=== PATIENT | male | born 1945 | race Caucasian/White ===

== ENCOUNTER 2022-11-15 07:29 | Day surgery (SDC) | payer MEDICARE ==
[~2022-11-15] VITALS: Ht 170.2 cm; Wt 108.9 kg
[~2022-11-15 07:29] MED LIST: ASPIRIN LOW81 M1 PO; ATORVASTATIN CA80 MG PO; CLOPIDOGREL75 MG PO; D3-5050000 UNIT PO; EZETIMIBE10 MG PO; HYDRALAZINE HYD25 MG PO; LEVOCETIRIZINE D5 MG PO; LEVOTHYROXIN75 MC1 PO; LOPID600 MG PO; METOPROLOL SUCC50 MG PO; MONTELUKAST SOD10 MG PO; SYNJARDY 12.5-51 TAB PO; TRICOR48 MG PO; TRULICITY1.5 MG/0.5 SC; VITAMIN B-125000 MCG SL; VITAMIN C1000 MG PO; ZINC CHELATED50 MG PO
[2022-11-15 11:14] VITALS: BP 130/90
== END 2022-11-15 10:45 | disposition home or self-care (01) ==
LOC: ENDO 07:29 → ORM 09:25 → ENDO 10:45 → ORM 11:15
PROVIDERS: ATTEND Surgery
PROC: 0DBL8ZX Excision of Transverse Colon, Via Natural or Artificial Opening Endoscopic, Diagnostic (ICD-10-PCS; principal; 2022-11-15)
DX: Z12.11 Encounter for screening for malignant neoplasm of colon (principal); D12.3 Benign neoplasm of transverse colon; K57.30 Diverticulosis of large intestine without perforation or abscess without bleeding; K64.8 Other hemorrhoids; I10 Essential (primary) hypertension; E11.9 Type 2 diabetes mellitus without complications; Z79.85 Long-term (current) use of injectable non-insulin antidiabetic drugs; Z79.84 Long term (current) use of oral hypoglycemic drugs; Z86.010 Personal history of colon polyps

== ENCOUNTER 2022-11-22 11:15 | Inpatient (IN) | payer MEDICARE ==
[~2022-11-22] VITALS: Ht 175.3 cm; Wt 108.8 kg
[2022-11-22] VITALS (43 sets, daily range): BP systolic 82–138; BP diastolic 30–81
--- NOTE | 2022-11-22 11:15 | NUR ---
PT AMBULATED TO ROOM 9 USING HIS PERSONAL WALKER WITH A SLOW STEADY GAIT.
[2022-11-22 11:58] LABS: BASO% 0.4 % (0-3); EOS% 1.2 % (0-8); HEMATOCRIT 42.5 % (39.0-50.0); HEMOGLOBIN 13.6 g/dl (14.0-18.0); IMMATURE GRANULOCYTES 0.2 % (0.0-5.0); MEAN CELL VOLUME 91.6 fL CALC (80.0-100.0); MEAN CORPUSCULAR HGB 29.3 pG CALC (26.0-32.0); MONO% 9.8 % (2-13); NEUT# 7.59 thou/uL (1.82-7.42); NEUT% 69.4 % (42-76); RED BLOOD COUNT 4.64 mill/uL (4.70-6.10); RED CELL DISTRI WIDTH 13.9 % (11.5-15.5)
[2022-11-22 12:08] LABS: ALKALINE PHOSPHATASE 74 u/l (38-126); ANION GAP 16 (6-22 (CALC)); BILIRUBIN, TOTAL 0.5 mg/dL (0.2-1.3); BUN 27 mg/dL (8-23); BUN/CREATININE RATIO 27 (12-20 (CALC)); CARBON DIOXIDE 21 mmol/l (22-30); CHLORIDE 108 mmol/l (95-108); GFR FOR AFR.AMER. > 60 ML/MIN (>=60 (CALC)); GFR OTHER RACES > 60 ML/MIN (>=60 (CALC)); LIPASE 356 u/l (23-300); POTASSIUM 4.7 mmol/l (3.5-5.1); SGOT/AST 33 u/l (19-48); SODIUM 140 mmol/l (137-146); TOTAL PROTEIN 6.3 g/dL (6.3-8.2)
--- NOTE | 2022-11-22 12:51 | NUR ---
PATIENT RETURNED FROM CT. NAD. VSS. AWAITING RESULTS. RESTING COMFORTABLY IN BED, NO BMs. CALL LIGHT IN REACH, BED LOCKED.
[2022-11-22 14:34] LABS: HEMATOCRIT 35.8 % (39.0-50.0); HEMOGLOBIN 11.6 g/dl (14.0-18.0)
[2022-11-22 14:42] LABS: URINE BILIRUBIN - DIPSTICK NEGATIVE (NEGATIVE); URINE BLOOD DIPSTICK NEGATIVE (NEGATIVE); URINE COLOR YELLOW; URINE GLUCOSE - DIPSTICK >=1000 mg/dL (NEGATIVE); URINE KETONE NEGATIVE (NEGATIVE); URINE LEUK ESTERASE NEGATIVE (NEGATIVE); URINE PROTEIN - DIPSTICK NEGATIVE (NEG-TRACE); URINE SPECIFIC GRAVITY 1.015; URINE UROBILINOGEN - DIPSTICK 0.2 E.U./dL (0.2)
--- NOTE | 2022-11-22 15:00 | NUR ---
CONSENT OBTAINED FOR CVP LINE PLACEMENT
[2022-11-22 15:02] LABS: URINE NITRITE - DIPSTICK NEGATIVE (Negative)
--- NOTE | 2022-11-22 16:05 | NUR ---
PATIENT REMAINS IN CRITICAL, BUT STABLE CONDITION. REQUIRING VASOPRESSOR THERAPY WITH FREQUENT TITRATION AND PRBC ADMINISTRATION. CVAD INFUSING WITHOUT DIFFICULTY. MULTIPLE MAROON STOOLS ON BSC WITH LARGE CLOTS NOTED. CONTINUOUS CARDIAC, SPO2, AND HEMODYNAMIC MONITORING IN PLACE. MAP GOAL ([id number]).
--- NOTE | 2022-11-22 18:45 | NUR ---
PATIENT TO BE TRANSPORTED BY GROUND TO [facility] 07/21 WEATHER. POSITIVE TRANSPORT GIVEN REPORT, PRBC/LEVOPHED SENT WITH TRANSPORT TEAM AT SAME INFUSION RATES: LEVOPHED @ 3 MCG/MIN, PRBC @ 120 ML/HR.
--- NOTE | 2022-11-22 19:28 | NUR ---
REPORT TO [facility]ICI[facility] IN CRITICAL CARE @ [facility].
== END 2022-11-22 18:45 | disposition short-term general hospital (02) | DRG 379 ==
LOC: ED 11:15 → ED-I 12:50 → ED 13:12 → MS2 13:13 → ICU 13:17 → ED 13:17 → MS2 13:17 → ICU 15:00 → MS2 15:00 → ICU 15:01 → MS2 15:01 → ICU 15:26 → ED 18:45 → ICU 18:45
PROVIDERS: Nurse Practitioner; ADMIT Surgery; ATTEND Internal Medicine
PROC: 02HV33Z Insertion of Infusion Device into Superior Vena Cava, Percutaneous Approach (ICD-10-PCS; principal; 2022-11-22)
PROC: 3E043XZ Introduction of Vasopressor into Central Vein, Percutaneous Approach (ICD-10-PCS; 2022-11-22)
PROC: 30243N1 Transfusion of Nonautologous Red Blood Cells into Central Vein, Percutaneous Approach (ICD-10-PCS; 2022-11-22)
PROC: 30243N1 Transfusion of Nonautologous Red Blood Cells into Central Vein, Percutaneous Approach (ICD-10-PCS; 2022-11-22)
PROC: 30243N1 Transfusion of Nonautologous Red Blood Cells into Central Vein, Percutaneous Approach (ICD-10-PCS; 2022-11-22)
DX: K92.1 Melena (principal); I95.9 Hypotension, unspecified; Z98.890 Other specified postprocedural states
CPT/HCPCS: P9016; Q9967